=== PATIENT | female | born 1980 | race Caucasian/White ===

== ENCOUNTER 2022-01-07 12:37 | Outpatient (CLI) | payer BC, SELFPAY | END 2022-01-07 12:38 | disposition home or self-care (01) | LOC: AMB 01-15 15:02 | PROVIDERS: PCP Family Medicine; Visit Provider Emergency Medicine Emergency Medical Services | DX: R10.9 Unspecified abdominal pain (principal) | CPT/HCPCS: A0425; A0427 ==

== ENCOUNTER 2022-01-07 13:10 | Emergency (ER) | payer BC, SELFPAY ==
[2022-01-07 13:10] VITALS: BP 106/68; PULSE 71; RESP 14; TEMP 35.9; O2SAT 100; BMI 25.1
[2022-01-07 13:15] VITALS: BP 115/85; PULSE 77; RESP 14; O2SAT 100
[2022-01-07 13:30] VITALS: BP 115/80; PULSE 62; O2SAT 98
--- NOTE | 2022-01-07 13:43 | ED.ABDPAIN ---
HPI - Abdominal Pain General Time Seen by Provider: 13:42 Date Seen: 01/07/22 Chief Complaint: Abdominal Pain Stated Complaint: Abdominal Pain History of Present Illness HPI narrative: This 41-year-old female comes in with right lower quadrant abdominal pain that came on rather suddenly about half an hour prior to arrival. She states that the pain was sudden and severe and feels similar to ovarian cysts that she has had in the past. She states that she has had a ruptured ovarian cyst approximately once a year over the past 20 years or so. Prior to this today she was feeling normal. She does not report any fever. she came in by ambulance where an IV was established and she received a dose of fentanyl. This brought sufficient relief to her pain for the time being. Related Data Home Medications Medication Instructions Recorded Confirmed sertraline 100 mg tablet mg 01/07/22 Allergies Allergy/AdvReac Type Severity Reaction Status Date / Time Estrogens Allergy Verified 01/07/22 13:42 nalbuphine [From Nubain] Allergy Verified 01/07/22 13:42 Review of Systems Status of ROS Reports: 10 or more systems reviewed and unremarkable except as noted in History and below Narrative Constitutional: No fevers, no weight gain or loss. Eyes: No discharge. No vision changes. HENT: No congestion, no sore throat, no ear pain. Cardiovascular: No chest pain, no palpitations. Respiratory: No shortness of breath, no wheezes, no cough. Gastrointestinal: Abdominal pain as described above. Genitourinary: No dysuria, no hematuria. Musculoskeletal: Normal range of motion. Skin: No rashes, no pruritis. Neurological: No dizziness, weakness, sensory change, speech change. Endo/Heme/Allergies: No bruising or bleeding. No polydipsia. Pysch: no suicidality, no anxiety, no insomnia. All other systems reviewed and are negative. Exam Narrative: Exam Narrative: Constitutional: Well-developed, well-nourished, no acute distress. HEENT: Normocephalic, atraumatic. Neck: Normal range of motion. Nontender. Supple. Heart: Regular. No murmurs. Normal rate. Intact distal pulses. Lungs: Clear to auscultation. No chest discomfort. No wheezes, rhonchi, or rales. Abdomen: Normal bowel sounds. Tenderness in the right lower quadrant overlying the area where the right ovary would reside. No rebound tenderness. Genitalia: Deferred. Back: No midline tenderness. Normal range of motion. Extremities: Normal range of motion. No injury. Skin: Intact. No rash. Warm. No erythema or pallor. Neurologic: No altered sensation. No weakness. Alert and oriented. Psychiatric: No suicidality. No anxiety or depression. No insomnia. Nursing notes and vitals signs are reviewed. Const: Vital Signs, click to edit/add: Vital Signs - 24 hr 01/07/22 13:10 Temperature 96.7 F L Pulse Rate [Left P ulse Oximeter] 71 Respiratory Rate 14 Blood Pressure [Le ft Upper Arm] 106/68 Pulse Oximetry 100 Course Vital Signs Vital signs: Initial Vital Signs Temperature 96.7 F L 01/07/22 13:10 Temperature Source Temporal Artery Scan 01/07/22 13:10 Pulse Rate 71 01/07/22 13:10 Respiratory Rate 14 01/07/22 13:10 Blood Pressure 106/68 01/07/22 13:10 Blood Pressure Mean 80 01/07/22 13:10 Blood Pressure Position Sitting 01/07/22 13:10 Pulse Oximetry 100 01/07/22 13:10 Oxygen Delivery Method 01/07/22 13:10 Vital Signs Temperature 96.7 F L 01/07/22 13:10 Pulse Rate 71 01/07/22 13:10 Respiratory Rate 14 01/07/22 13:10 Blood Pressure 106/68 01/07/22 13:10 Pulse Oximetry 100 01/07/22 13:10 Temperature 96.7 F L 01/07/22 13:10 Pulse Rate 71 01/07/22 13:10 Respiratory Rate 14 01/07/22 13:10 Blood Pressure 106/68 01/07/22 13:10 Pulse Oximetry 100 01/07/22 13:10 MDM - Abdominal Pain MDM Narrative Medical decision making narrative: This patient comes in with sudden onset of severe abdominal pain in the right lower quadrant. She has a history of ovarian cyst ruptures. Her symptoms today are very suspicious for a similar recurrence. She still has her appendix and gallbladder. She does not describe any fever and does not have symptoms suspicious of appendicitis or gallbladder disease. I did discuss lab and imaging options with the patient who agreed to have a bedside ultrasound done. I was able to see normal anatomy and did not find any cystic structure or evidence of appendicitis. I did discuss the role of CT scan with IV contrast as a better test for the abdomen as a whole but this was declined by the patient. She is not exhibiting any rebound tenderness or signs of acute abdomen. She is okay to return home. She did receive an extra dose of Dilaudid 0.5 mg intravenously. Prescriptions for Toradol and [place] are provided. Discharge Plan Discharge Clinical Impression: Ovarian cyst rupture Patient Disposition: Home, Self-Care Condition: Stable Instructions: Ovarian Cyst (ED) Additional Instructions: Abdominal pain suspicious for ruptured ovarian cyst. Take medication as needed and indicated. Follow up with MD or return if persistent or worsening symptoms happen. Activity Level: Activity as Tolerated Prescriptions: No Action sertraline 100 mg tablet 0RF Label Comments: TAKE ONE TABLET BY MOUTH ONE TIME DAILY Stand Alone Forms: [place] Info Instructions Procedures Ultrasound Other exam #1: Anatomical areas examined: Liver, right kidney, gallbladder, aorta, and right lower quadrant. Indications: Right-sided abdominal pain. Exam type: focused emergency ultrasound Description/findings: Normal appearing kidney, liver, gallbladder, aorta. no fluid in Morison's pouch. No evidence of cystic structure in the right lower abdomen. Appendicitis is not visualized. Impression: Normal ultrasound findings of the right abdomen.
[2022-01-07 14:00] VITALS: BP 115/75; PULSE 66; RESP 16; O2SAT 99
[2022-01-07] MEDS: HYDROmorphone 0.5 mg/0.5 ml inj IVP (14:23)
== END 2022-01-07 14:30 | disposition home or self-care (01) ==
PROVIDERS: Emergency Provider Emergency Medicine Emergency Medical Services; PCP Family Medicine
DX: N83.299 Other ovarian cyst, unspecified side (principal)
CPT/HCPCS: 96374; 99283; 99284; 99285; J1170

== ENCOUNTER 2022-07-31 09:00 | Outpatient (CLI) | payer BC, SELFPAY ==
--- NOTE | 2022-07-31 09:15 | US_ITS ---
Patient: DEVYN WATERS Facility:?[facility] Patient ID:?[id number] Site Patient ID:?[id number]. Site :?1980 Study:?US-Thyroid THRYOID FNA / RT-07/31/2022 10:26:54 AM Ordering Physician:?UNKNOWN UNKNOWN Final Report: INDICATION: Right thyroid lobe nodule. Fine-needle aspiration/biopsy for diagnostic purposes. PROCEDURE: Informed consent was obtained. Benefits and risks were discussed. The patient agreed to proceed. [place] Protocol: A. Preprocedure verification complete: Yes 1) Relevant information/documentation available, reviewed and properly matched to the patient; 2) Consent accurate and complete; 3) Equipment and supplies available. B. Site marking complete: Yes Site marked if not in continuous attendance with patient. C. TIME OUT completed: Yes Time Out was conducted just prior to starting procedure to verify the eight required elements: 1) Patient identity, 2) Consent accurate and complete, 3) Position, 4) Correct side/site marked (if applicable), 5) Procedure, 6) Relevant images/results properly labeled and displayed (if applicable), 7) Antibiotics/irrigation fluids (if applicable), 8) Safety precautions, 9) Laboratory results were reviewed. Utilizing sterile technique and 1% lidocaine for local anesthetic, a series of six 25-gauge needles were advanced into the 1.7 x 0.7 x 1.6 cm anterior mid right thyroid nodule. The patient tolerated the biopsy well. No immediate complications. No subsequent imaging. The final pathology is pending. IMPRESSION: Technically successful ultrasound-guided fine-needle aspiration/biopsy of a dominant right thyroid lobe nodule. Six passes were made. Final pathology is pending. Dictated by Ruy Persaud MD @ 07/31/2022 11:13:39 AM Signed by:?Ruy Persaud MD @07/31/2022 11:37:41 AM (Electronic Signature)
== END 2022-07-31 09:01 | disposition home or self-care (01) ==
PROVIDERS: PCP Family Medicine; Visit Provider Family Medicine
DX: E04.1 Nontoxic single thyroid nodule (principal)
CPT/HCPCS: 10005; 88173

== ENCOUNTER 2023-03-04 09:02 | Outpatient (CLI) | payer BC, SELFPAY | END 2023-03-04 09:03 | disposition home or self-care (01) | PROVIDERS: PCP Family Medicine; Visit Provider Internal Medicine | DX: Z00.00 Encounter for general adult medical examination without abnormal findings (principal); E04.1 Nontoxic single thyroid nodule; K58.9 Irritable bowel syndrome, unspecified | CPT/HCPCS: 80053; 84443 ==

== ENCOUNTER 2023-04-20 11:45 | Emergency (ER) | payer BC, SELFPAY ==
[2023-04-20 11:50] VITALS: BP 125/87; PULSE 70; RESP 18; TEMP 36.4; O2SAT 99; BMI 27.4
--- NOTE | 2023-04-20 12:16 | CRLHL7_ITS ---
For Patients: As a result of the Century Cures Act, medical imaging exams and procedure reports are released immediately into your electronic medical record. You may view this report before your referring provider. If you have questions, please contact your health care provider. INDICATION: Passed clots. Spotting. COMPARISON: Pelvic ultrasound dated 22 September 2018. FINDINGS: An endovaginal pelvic ultrasound shows a uterus of normal size, contour, and echogenicity. Normal appearance of the endometrial stripe which measures 6 mm in thickness. L IUD in the cervix. A few follicles in the ovaries with the right ovary measuring 3.8 x 2.6 x 2.1 cm and the left ovary measuring 4.7 x 1.8 x 1.8 cm. Color doppler analysis shows normal arterial and venous blood flow to both ovaries. Very small amount of simple appearing free fluid in the pelvis. Impression : 1. IUD displaced inferiorly and is located in the cervix. 2. The uterus and ovaries are otherwise unremarkable. Dictated by Jimmy Rosenberg MD @ 04/20/2023 1:31:58 PM Dictated by: Jimmy Rosenberg MD @ 04/20/2023 13:32:17 (Electronically Signed)
[2023-04-20 13:38] LABS: Basophils Percent Auto 0.5 % (0.0-3.0); Eosinophils Absolute Auto 0.11 K/uL (0.00-0.50); Eosinophils Percent Auto 1.5 % (0.0-7.0); Hematocrit 39.8 % (33.0-51.0); Hemoglobin* 13.1 gm/dL (12.0-16.0); Immature Granulocytes Pct Auto 0.1 %; Lymphocytes Absolute Auto 1.83 K/uL (0.90-2.90); Lymphocytes Percent Auto 24.6 % (20-44); Mean Corpuscular HGB Conc 33 gm/dL (32-36); Mean Corpuscular Hemoglobin 32 pg (26-34); Mean Corpuscular Volume 96 fL (80-100); Monocytes Percent Auto 6.9 % (0.0-11.0); Neutrophils Absolute Auto 4.94 K/uL (1.7-7.0); Neutrophils Percent Auto 66.4 % (42.0-72.0); Platelet Count* 309 K/uL (140-440); Red Blood Count 4.16 m/uL (4.00-5.20); White Blood Count* 7.44 K/uL (4.50-11.00)
[2023-04-20 13:38] LABS: Appearance Urine Clear (Clear); Bilirubin Urine Negative (Negative); Blood Urine 1+ (Negative); Color Urine Yellow (Yellow); Glucose Urine Negative (Negative); Ketones Urine 1+ (Negative); Leukocyte Esterase Urine Negative (Negative); Nitrite Urine Negative (Negative); Protein Urine Negative (Negative); Urobilinogen Urine 0.2 (0.2-1.0); pH Urine 6.5 (5.0-8.5)
[2023-04-20 13:39] LABS: Basophils Absolute Auto 0.04 K/uL (0.00-0.30); Immature Granulocytes Abs Auto 0.01 K/uL (0.00-0.30)
[2023-04-20 13:43] LABS: Slide Review Reflex No
[2023-04-20 13:48] LABS: Ur HCG Qualitative* Negative (Negative)
[2023-04-20 14:08] LABS: Chloride* 105 mmol/L (96-114); Sodium* 139 mmol/L (135-149)
[2023-04-20 14:09] LABS: Potassium* 4.3 mmol/L (3.6-5.1)
[2023-04-20 14:11] LABS: Anion Gap 8 mEq/L (7-15); Carbon Dioxide* 26 mmol/L (20-32); Creatinine* 0.7 mg/dL (0.5-1.5); Est. Creatinine Clearance* 106.69; Estimated Glomerular Filt Rate 111 ml/min
[2023-04-20 14:12] LABS: Blood Urea Nitrogen* 16 mg/dL (5-24); Calcium* 9.2 mg/dL (8.4-10.6); Glucose* 83 mg/dL (60-115)
--- NOTE | 2023-04-20 14:33 | ED.GENADULT ---
HPI - General Adult General Date Seen: 04/20/23 Chief complaint: Abdominal Pain Stated complaint: Ultrasound, came from Urgent Care Time Seen by Provider: 04/20/23 12:00 History of Present Illness HPI narrative: This is a very pleasant 43-year-old female who is a , history of ovarian cysts, history of IBS with constipation, was referred to the ER today from urgent care for evaluation of pelvic cramping and vaginal bleeding. Patient reports that she did have an IUD placed in February. Since then she has had some intermittent vaginal spotting and also some mild intermittent cramping. She has a history of ovarian cyst years ago in her cramping is really not as severe or reminiscent of those cysts. She was into her doctor's office 2 weeks ago on 03/[address] Polanco. She had a pelvic exam with an IUD check and the strings were apparently in place. She was reassured at that time. For the past couple of days she has developed some heavier vaginal bleeding and some pelvic cramping more in the uterus but also little bit on the right side. This morning she was at work and she passed a roughly 7 cm piece of tissue, that appear to be uterine linings. Bleeding is reddish. No purulent or malodorous discharge. No fever chills. No other flank pain or upper abdominal pain. No urinary symptoms. She does not think she is . Related Data Home Medications Medication Instructions Recorded Confirmed sertraline 100 mg tablet mg 01/07/22 04/20/23 Allergies Allergy/AdvReac Type Severity Reaction Status Date / Time nalbuphine [From Nubain] Allergy Unknown Agitated Verified 04/20/23 11:09 Estrogens AdvReac Unknown Factor V Verified 04/20/23 11:09 Leiden Heterozygote [facility] Medical History (Updated 04/20/23 @ 14:33 by Amari Santiago MD) IBS (irritable bowel syndrome) ?K58.9 - Irritable bowel syndrome without diarrhea (ICD-10) History of ovarian cyst ?Z87.42 - Personal history of other diseases of the female genital tract (ICD-10) History of recurrent miscarriages ?N96 - Recurrent loss (ICD-10) History of abnormal cervical Pap smear ?Z87.42 - Personal history of other diseases of the female genital tract (ICD-10) Surgical History (Updated 02/27/23 @ 11:14 by Gabby Moura) Abnormal colonoscopy (09/04/21) ?R93.3 - Abnormal findings on diagnostic imaging of other parts of digestive tract (ICD-10) History of D&C (05/27/09) ?Z98.890 - Other specified postprocedural states (ICD-10) History of right breast biopsy (12/18/10) ?Z98.890 - Other specified postprocedural states (ICD-10) S/P thyroid biopsy ?Z98.890 - Other specified postprocedural states (ICD-10) Family History (Updated 02/27/23 @ 12:01 by Gabby Moura) Father Coronary artery disease, Onset Age: 49 High blood pressure Aunt Lupus Paternal Grandmother High cholesterol High blood pressure Breast cancer, Onset Age: 37 Paternal Grandfather High cholesterol Sister Depression Anxiety Breast cancer Social History Smoking Status: Never smoker Do you use any of these nicotine containing products: None Second hand tobacco smoke exposure: No How often do you have a drink containing alcohol: never How often do you have six or more drinks on one occasion: Never AUDIT-C Alcohol total score: 0 Non-prescribed substance use: denies use Little interest or pleasure in doing things: not at all Feeling down, depressed, or hopeless: not at all Exam Narrative: Exam Narrative: Constitutional: Appears well-developed and well-nourished. Alert. Conversant. Non toxic. She politely declines pain medications. HENT: Head: Atraumatic. Nose: Nose normal. Mouth/Throat: Oral mucosa is clear and moist. no trismus. Pharynx normal. Tonsils symmetric. No tonsillar enlargement, erythema, or exudate. Eyes: Conjunctivae normal. EOM normal. Pupils equal, round, and reactive to light. No scleral icterus. Neck: Normal range of motion. Neck supple. No tracheal deviation present. Cardiovascular: Normal rate, regular rhythm. No gallop. No friction rub. No murmur heard. Symmetric radial artery pulses Pulmonary/Chest: Effort normal. No stridor. No respiratory distress. No wheezes. No rales. No rhonchi . No tenderness. Abdominal: Soft. Bowel sounds normal. No distension. No mass. Suprapubic> right lower quadrant> left lower quadrant tenderness. No rebound. No guarding. No CVA tenderness. Musculoskeletal: RUE: Normal range of motion. No tenderness. No deformity LUE: Normal range of motion. No tenderness. No deformity RLE: Normal range of motion. No edema. No tenderness. No deformity LLE: Normal range of motion. No edema. No tenderness. No deformity Neurological: Alert and oriented to person, place, and time. Normal strength. CN II-VII intact. No sensory deficit. GCS eye subscore is 4. GCS verbal subscore is 5. GCS motor subscore is 6. Normal coordination Skin: Skin is warm and dry. No rash noted. No pallor. Normal capillary refill. Psychiatric: Normal mood. Normal affect. Const: Vital Signs, click to edit/add: Vital Signs - 24 hr 04/20/23 11:50 04/20/23 14:40 Temperature 97.6 F Pulse Rate [Pulse Oximeter] 70 72 Respiratory Rate 18 16 Blood Pressure [Ri ght Upper Arm] 125/87 128/62 Pulse Oximetry 99 100 Oxygen Delivery Me thod Room Air Room Air Course Vital Signs Vital signs: Initial Vital Signs Temperature 97.6 F 04/20/23 11:50 Temperature Source Temporal Artery Scan 04/20/23 11:50 Pulse Rate 70 04/20/23 11:50 Respiratory Rate 18 04/20/23 11:50 Blood Pressure 125/87 04/20/23 11:50 Blood Pressure Mean 99 04/20/23 11:50 Blood Pressure Position Supine 04/20/23 11:50 Pulse Oximetry 99 04/20/23 11:50 Oxygen Delivery Method Room Air 04/20/23 11:50 Vital Signs Temperature 97.6 F 04/20/23 11:50 Pulse Rate 70 04/20/23 11:50 Respiratory Rate 18 04/20/23 11:50 Blood Pressure 125/87 04/20/23 11:50 Pulse Oximetry 99 04/20/23 11:50 Oxygen Delivery Method Room Air 04/20/23 11:50 Temperature 97.6 F 04/20/23 11:50 Pulse Rate 72 04/20/23 14:40 Respiratory Rate 16 04/20/23 14:40 Blood Pressure 128/62 04/20/23 14:40 Pulse Oximetry 100 04/20/23 14:40 Oxygen Delivery Method Room Air 04/20/23 14:40 Medical Decision Making MDM Narrative Medical decision making narrative: This is a very pleasant 43-year-old female with recent placement of IUD now presenting to the ER today with heavier than baseline vaginal bleeding and some pelvic discomfort. She was referred from urgent care for pelvic ultrasound. Differential would include male position of IUD, uterine perforation, ovarian cyst, complication, urinary tract infection, as well as non gynecologic causes of her pain such as appendicitis or kidney stone. Laboratory and urinalysis workup here in the ER reassuring. She does have scant amount of hematuria which is likely related to her light vaginal bleeding. She is not . Pelvic ultrasound confirms malposition of her IUD with that low in the uterus, approaching the cervix. At this point would not remove the IUD here in the ER. She will follow up outpatient with her link knitting machine operator for re-evaluation and IUD removal or repositioning. She is comfortable this plan of care. Precautions for return to the ER reviewed. Lab Data Labs: Lab Results 04/20/23 04/20/23 Range/Units 13:15 13:30 WBC 7.44 (4.50-11.00) K/uL RBC 4.16 (4.00-5.20) m/uL Hgb 13.1 (12.0-16.0) gm/dL Hct 39.8 (33.0-51.0) % MCV 96 (80-100) fL MCH 32 (26-34) pg MCHC 33 (32-36) gm/dL RDW Coeff of [place] 12.0 (11.5-15.5) % Plt Count 309 (140-440) K/uL Neut % (Auto) 66.4 (42.0-72.0) % Lymph % (Auto) 24.6 (20-44) % [place] % (Auto) 6.9 (0.0-11.0) % Eos % (Auto) 1.5 (0.0-7.0) % Baso % (Auto) 0.5 (0.0-3.0) % Neut # (Auto) 4.94 (1.7-7.0) K/uL Lymph # (Auto) 1.83 (0.90-2.90) K/uL [place] # (Auto) 0.50 (0.00-0.90) K/UL Eos # (Auto) 0.11 (0.00-0.50) K/uL Baso # (Auto) 0.04 (0.00-0.30) K/uL Abs Immat Gran (auto) 0.01 (0.00-0.30) K/uL Imm/Tot Granulo (auto) 0.1 % Sodium 139 (135-149) mmol/L Potassium 4.3 (3.6-5.1) mmol/L Chloride 105 (96-114) mmol/L Carbon Dioxide 26 (20-32) mmol/L Anion Gap 8 (7-15) mEq/L BUN 16 (5-24) mg/dL Creatinine 0.7 (0.5-1.5) mg/dL Estimated Creat Clear 106.69 Estimated GFR 111 ml/min Glucose 83 (60-115) mg/dL Calcium 9.2 (8.4-10.6) mg/dL Urine Color Yellow (Yellow) Urine Appearance Clear (Clear) Urine pH 6.5 (5.0-8.5) Ur Specific [place] 1.010 (1.000-1.030) Urine Protein Negative (Negative) Urine Glucose (UA) Negative (Negative) Urine Ketones 1+ A (Negative) Urine Blood 1+ A (Negative) Urine Nitrite Negative (Negative) Urine Bilirubin Negative (Negative) Urine Urobilinogen 0.2 (0.2-1.0) Ur Leukocyte Esterase Negative (Negative) Urine RBC 2-5 A (0-2) Urine WBC 2-5 (0-5) Ur Squamous Epith Cells Few (None-Few) Urine Bacteria Few A (None) Urine HCG, Qual Negative (Negative) Imaging Data Pelvic ultrasound: Attestation: I have reviewed the pertinent imaging results. Radiologist's impression: Impression : 1. IUD displaced inferiorly and is located in the cervix. 2. The uterus and ovaries are otherwise unremarkable. Discharge Plan Discharge Clinical Impression: Pelvic cramping, IUD complication Patient Disposition: Home, Self-Care Condition: Stable Instructions: Intrauterine Device (DC) Additional Instructions: Your ultrasound today shows that your IUD is very low in your uterus and almost into your cervix. You should see your link knitting machine operator within the next 2-4 days to have the IUD removed or repositioned. In the meantime, use ibuprofen if needed for cough for cramping. If you have severe pain, heavy bleeding, lightheadedness, fever, or any other concerns, please come back to the ER right away to be rechecked Prescriptions: No Action sertraline 100 mg tablet Patient Comments: TAKE ONE TABLET BY MOUTH ONE TIME DAILY Follow Up/Referrals: Shante Polanco MD [Primary Care Provider] - Stand Alone Forms: [employer] Info Instructions
[2023-04-20 14:40] VITALS: BP 128/62; PULSE 72; RESP 16; O2SAT 100
[2023-04-20 14:44] LABS: Bacteria Urine Few; Squamous Epithelial Cell Urine Few (None-Few)
== END 2023-04-20 14:42 | disposition home or self-care (01) ==
PROVIDERS: Emergency Provider Emergency Medicine; PCP Family Medicine
DX: T83.89XA Other specified complication of genitourinary prosthetic devices, implants and grafts, initial encounter (principal); R10.2 Pelvic and perineal pain
CPT/HCPCS: 36415; 76830; 80048; 81001; 81025; 85025; 87086; 99283; 99284

== ENCOUNTER 2023-09-02 12:34 | Outpatient (CLI) | payer BC, SELFPAY ==
--- NOTE | 2023-09-02 13:00 | CT_ITS ---
Patient: DEVYN WATERS Facility:?[facility] Patient ID:?[id number] Site Patient ID:?[id number]. Site :?1980 Study:?CT-Abdomen/Pelvis 91CC ISOVUE 370 AND WATER PREP-09/02/2023 1:35:41 PM Ordering Physician:?DR. MIX Final Report: INDICATION: Abdominal pain, colitis TECHNIQUE: Axial images were obtained from the diaphragm to the pubic symphysis. Reformats were obtained in the coronal and sagittal plane. IV Contrast: 91 cc Isovue 370 Oral Contrast: Water COMPARISON: Abdomen and pelvis CT 03/13/2021 FINDINGS: Lower chest: Unremarkable. Liver: Unremarkable. Normal in size and attenuation. No masses. Gallbladder and bile ducts: Unremarkable. No stones or inflammation. No biliary dilatation. Spleen: Unremarkable. Normal in size without mass. Pancreas: Unremarkable. No mass or inflammation. Adrenal glands: Unremarkable. No nodules. Kidneys: Unremarkable. No masses, stones, or hydronephrosis. Vasculature: Unremarkable. GI tract: No dilated loops of large or small intestine. No localized inflammation. Large amount of stool within the colon. Pelvis: Unremarkable. Bones: Degenerative disc disease L5-S1 IMPRESSION: 1. No dilated bowel or localized inflammation. Large amount of stool within the colon. 2. Degenerative disc disease L5-S1 Please note that all CT scans at this facility use dose modulation, iterative reconstruction, and/or weight-based dosing when appropriate to reduce radiation dose to as low as reasonably achievable. Dictated by Nelson Escobar MD @ 09/02/2023 1:54:31 PM Signed by:?Nelson Escobar MD @09/02/2023 1:54:31 PM (Electronic Signature)
== END 2023-09-02 12:35 | disposition home or self-care (01) ==
PROVIDERS: PCP Internal Medicine; Visit Provider Internal Medicine
DX: R10.9 Unspecified abdominal pain (principal); M51.37 Other intervertebral disc degeneration, lumbosacral region
CPT/HCPCS: 74177; Q9967

== ENCOUNTER 2024-07-28 02:44 | Outpatient (CLI) | payer BC, SELFPAY | END 2024-07-28 02:45 | disposition home or self-care (01) | LOC: AMB 08-07 04:11 | PROVIDERS: PCP Internal Medicine; Visit Provider Family Medicine | DX: R10.9 Unspecified abdominal pain (principal) | CPT/HCPCS: A0425; A0433 ==

== ENCOUNTER 2024-07-28 03:17 | Emergency (ER) | payer BC, SELFPAY ==
--- OUTSIDE RECORDS SUMMARY | 2024-07-28 03:20 | XMS_ITS | Continuity of Care Document ---
Author Name NwHIN User [email or web address] llowed Address Unknown Organization Unknown Address Unknown Procedures FILTER APPLIED:Only known Procedures with Onset Date within the last 5 years Procedure Date Procedure Provider Arturo powell Information Status CT ABD PELV W/CONTRAST (46494) Completed URINALYSIS AUTO W/SCOPE (53015) Completed URINE TEST (75153) Completed COMPLETE CBC W/AUTO DIFF WBC (95734) Completed METABOLIC PANEL TOTAL CA (96197) Completed URINE CULTURE/COLONY COUNT (91901) Completed EMERGENCY DEPT VISIT MOD MDM (71201) Completed TRANSVAGINAL US NON-OB (76510) Completed ROUTINE VENIPUNCTURE (26734) Completed Encounters FILTER APPLIED:Only known Encounters with Admission Date within the last 5 years Encounter Location Admission Discharge Billing Code Consultant Cora luther [facility] Shannen Graves
[2024-07-28 03:21] VITALS: BP 113/81; PULSE 74; RESP 18; TEMP 36.8; O2SAT 96; BMI 26.6
[2024-07-28 03:42] LABS: Basophils Absolute Auto 0.03 K/uL (0.00-0.30); Basophils Percent Auto 0.3 % (0.0-3.0); Eosinophils Absolute Auto 0.25 K/uL (0.00-0.50); Eosinophils Percent Auto 2.7 % (0.0-7.0); Hematocrit 38.5 % (33.0-51.0); Hemoglobin* 12.6 gm/dL (12.0-16.0); Immature Granulocytes Abs Auto 0.01 K/uL (0.00-0.30); Immature Granulocytes Pct Auto 0.1 %; Lymphocytes Absolute Auto 3.66 K/uL (0.90-2.90); Mean Corpuscular HGB Conc 33 gm/dL (32-36); Mean Corpuscular Hemoglobin 31 pg (26-34); Mean Corpuscular Volume 94 fL (80-100); Monocytes Percent Auto 6.7 % (0.0-11.0); Neutrophils Absolute Auto 4.59 K/uL (1.7-7.0); Neutrophils Percent Auto 50.2 % (42.0-72.0); Platelet Count* 315 K/uL (140-440); Red Blood Count 4.11 m/uL (4.00-5.20); Slide Review Reflex No; White Blood Count* 9.15 K/uL (4.50-11.00)
--- NOTE | 2024-07-28 03:42 | ED_ITS ---
HPI - General Adult General Chief complaint: Abdominal Pain Stated complaint: Abdominal pain Time Seen by Provider: 07/28/24 03:30 Source: patient and EMS Mode of arrival: EMS Limitations: no limitations History of Present Illness HPI narrative: 44-year-old female with prior history of ovarian cyst presents to the emergency department for evaluation of right lower quadrant pain that awoke her from sleep at 2:30 a.m.. Sharp pain that does not radiate. She reports that she was screaming out in pain. She received fentanyl from EMS and pain is doing quite a bit better. No trauma or injury. No pain when she went to bed normally at 9:00 p.m.. Eating and drinking normally, voiding and stooling normally. No gynecological changes. Finished her menstrual cycle late last week. No nausea or vomiting. No prior history of kidney stones. Does have a prior history of ovarian cyst, denies abdominal surgeries. She says that she feels like the pain is similar to previous ruptured ovarian cyst. Past medical history reportedly negative per patient besides depression. Per her medical records a report of this thigh me a, chronic abdominal pain, alternating diarrhea and constipation as well as a history of an IUD. She states that her only home medication is sertraline. Nonsmoker. ROS is notable for the abdominal symptoms as above only, otherwise denies times 12 systems. Related Data Home Medications ?Medication ?Instructions ?Recorded ?Confirmed sertraline 100 mg tablet 100 mg PO DAILY 07/28/24 07/28/24 Allergies Allergy/AdvReac Type Severity Reaction Status Date / Time nalbuphine (From Nubain) Allergy Unknown Agitated Verified 07/28/24 03:23 Estrogens AdvReac Unknown Factor V Verified 07/28/24 03:23 Leiden Heterozygote [facility] Medical History Abdominal pain ?R10.9 - Unspecified abdominal pain (ICD-10) IBS (irritable bowel syndrome) ?K58.9 - Irritable bowel syndrome without diarrhea (ICD-10) History of ovarian cyst ?Z87.42 - Personal history of other diseases of the female genital tract (ICD-10) History of recurrent miscarriages ?N96 - Recurrent loss (ICD-10) History of abnormal cervical Pap smear ?Z87.42 - Personal history of other diseases of the female genital tract (ICD-10) Surgical History Abnormal colonoscopy (09/04/21) ?R93.3 - Abnormal findings on diagnostic imaging of other parts of digestive tract (ICD-10) History of D&C (05/27/09) ?Z98.890 - Other specified postprocedural states (ICD-10) History of right breast biopsy (12/18/10) ?Z98.890 - Other specified postprocedural states (ICD-10) S/P thyroid biopsy ?Z98.890 - Other specified postprocedural states (ICD-10) Family History Father Coronary artery disease, Onset Age: 49 High blood pressure Aunt Lupus Paternal Grandmother High cholesterol High blood pressure Breast cancer, Onset Age: 37 Paternal Grandfather High cholesterol Sister Depression Anxiety Breast cancer Social History Smoking Status: Never smoker Do you use any of these nicotine containing products: None Second hand tobacco smoke exposure: No How often do you have a drink containing alcohol: never How often do you have six or more drinks on one occasion: Never AUDIT-C Alcohol total score: 0 Non-prescribed substance use: denies use Exam Const: Vital Signs, click to edit/add: Vital Signs - 24 hr 07/28/24 03:21 07/28/24 03:44 07/28/24 04:21 Temperature 98.2 F 98.2 F Pulse Rate [Right Pulse Oximeter] 74 Respiratory Rate 18 Blood Pressure [Ri ght Upper Arm] 113/81 Pulse Oximetry 96 96 Oxygen Delivery Me thod Room Air Documenting provider has reviewed patient's vital signs: yes Common normals: no apparent distress and alert General appearance: cooperative and well kempt HENMT: Common normals: normocephalic, moist oral mucous membranes and oropharynx normal Head and scalp: normocephalic Face and sinus: normal facial exam Mouth: oral and palatal mucosa normal Eye: Common normals: conjunctivae normal General eye: normal appearance of both eyes Conjunctiva: conjunctiva(e) normal Neck & C-Spine: Common normals: full ROM and no lymphadenopathy Resp: Common normals: normal respiratory effort, no use of accessory muscles and clear to auscultation bilaterally Effort & inspection: able to speak in complete sentences Auscultation: clear to auscultation bilaterally Cardio: Common normals: regular rate, regular rhythm, S1 normal heart sound, S2 normal heart sound and no murmurs Rate: regular rate Rhythm: regular rhythm Heart sounds: S1 normal and S2 normal GI: Common normals: Normal to inspection, nondistended, normoactive bowel sounds present, soft to palpation, no hepatosplenomegaly and no masses Palpation: soft and no hepatosplenomegaly Other: Tender to right lower quadrant, no rebound tenderness or guarding. : Common normals: no CVA tenderness Bladder/kidney exam: no CVA tenderness Back & Pelvis: Common normals: no CVA tenderness Extremity: Common normals: normal to inspection, normal capillary refill and no pedal edema Neuro: Sensorium/orientation: alert Speech: speech normal Motor exam: no movement abnormalities noted Psych: Common normals: speech normal Appearance: well kempt Activity/motor behavior: appropriate eye contact Speech: normal speech Mood and affect: euthymic mood Insight: fair Judgement: fair Skin: Common normals: no rashes or lesions noted General skin exam: no rashes or lesions noted Course Course ED Course: 44-year-old female with right lower quadrant abdominal pain. She suspects ovarian cyst,. Cannot rule out nephrolithiasis, bowel obstruction, ovarian torsion, colitis, appendicitis, uterine fibroid, amongst others. Will obtain urinalysis and test. Anticipate CT. This may not appropriately show ovarian torsion. We have limited access to ultrasound overnight. Consider ultrasound if CT is nonrevealing. Toradol ordered p.r.n. Reevaluation(s) Time of Reevaluation #1: 04:33 Reevaluation #1: Patient remains comfortable appearing in the room. She did receive the Toradol that was ordered p.r.n.. She has not had any vomiting, stools or signs of complications here. No fevers. Vitals remained stable. I reviewed her CT findings which are all completely normal besides some mild constipation and her normal lab results with her. I recommended symptomatic treatment with Tylenol, ibuprofen, hot showers and MiraLax every 8 hours for the next couple of days or until her stools past loosely. I have reviewed proper usage of osmotic l axatives to ensure that she is not over diluting the medication. ?all questions answered, written instructions provided. Vital Signs Vital signs: Initial Vital Signs Temperature 98.2 F 07/28/24 03:21 Temperature Source Temporal Artery Scan 07/28/24 03:21 Pulse Rate 74 07/28/24 03:21 Respiratory Rate 18 07/28/24 03:21 Blood Pressure 113/81 07/28/24 03:21 Blood Pressure Mean 91 07/28/24 03:21 Blood Pressure Position Sitting 07/28/24 03:21 Pulse Oximetry 96 07/28/24 03:21 Oxygen Delivery Method Room Air 07/28/24 03:21 Vital Signs Temperature 98.2 F 07/28/24 03:21 Pulse Rate 74 07/28/24 03:21 Respiratory Rate 18 07/28/24 03:21 Blood Pressure 113/81 07/28/24 03:21 Pulse Oximetry 96 07/28/24 03:21 Oxygen Delivery Method Room Air 07/28/24 03:21 Temperature 98.2 F 07/28/24 04:21 Pulse Rate 74 07/28/24 03:21 Respiratory Rate 18 07/28/24 03:21 Blood Pressure 113/81 07/28/24 03:21 Pulse Oximetry 96 07/28/24 03:44 Oxygen Delivery Method Room Air 07/28/24 03:21 Medications Administered Medications: Generic Name Dose Route Start Last Admin Trade Name Freq PRN Reason Stop Dose Admin Ketorolac Tromethamine 15 mg 07/28/24 04:00 07/28/24 04:21 Ketorolac 15 Mg/Ml Inj IVP 15 mg Q6H PRN Administration Medical Decision Making Lab Data Lab results reviewed: Yes I reviewed the patient's lab results Lab results narrative: All labs fully reassuring. No signs of complications. Labs: Lab Results 07/28/24 07/28/24 07/28/24 Range/Units 03:30 03:36 03:40 WBC 9.15 (4.50-11.00) K/uL RBC 4.11 (4.00-5.20) m/uL Hgb 12.6 (12.0-16.0) gm/dL Hct 38.5 (33.0-51.0) % MCV 94 (80-100) fL MCH 31 (26-34) pg MCHC 33 (32-36) gm/dL RDW Coeff of Tyson 12.0 (11.5-15.5) % Plt Count 315 (140-440) K/uL Neut % (Auto) 50.2 (42.0-72.0) % Lymph % (Auto) 40.0 (20-44) % [place] % (Auto) 6.7 (0.0-11.0) % Eos % (Auto) 2.7 (0.0-7.0) % Baso % (Auto) 0.3 (0.0-3.0) % Neut # (Auto) 4.59 (1.7-7.0) K/uL Lymph # (Auto) 3.66 H (0.90-2.90) K/uL [place] # (Auto) 0.60 (0.00-0.90) K/UL Eos # (Auto) 0.25 (0.00-0.50) K/uL Baso # (Auto) 0.03 (0.00-0.30) K/uL Abs Immat Gran (auto) 0.01 (0.00-0.30) K/uL Imm/Tot Granulo (auto) 0.1 % Sodium 139 (135-149) mmol/L Potassium 3.2 L (3.6-5.1) mmol/L Chloride 108 (96-114) mmol/L Carbon Dioxide 24 (20-32) mmol/L Anion Gap 7 (7-15) mEq/L BUN 14 (5-24) mg/dL Creatinine 0.8 (0.5-1.5) mg/dL Estimated Creat Clear 95.74 Estimated GFR 94 ml/min Glucose 99 (60-115) mg/dL Calcium 8.5 (8.4-10.6) mg/dL Total Bilirubin 0.2 (0.1-1.5) mg/dL AST 20 (12-35) U/L ALT 13 (4-35) U/L Alkaline Phosphatase 54 (40-150) U/L C-Reactive Protein < 0.5 L (0.5-1.0) mg/dL Total Protein 6.2 (6.0-8.3) g/dL Albumin 3.8 (3.3-5.0) g/dL Lipase 196 (23-300) U/L Urine Color Yellow (Yellow) Urine Appearance Clear (Clear) Urine pH 6.0 (5.0-8.5) Ur Specific [place] 1.020 (1.000-1.030) Urine Protein Negative (Negative) Urine Glucose (UA) Negative (Negative) Urine Ketones Negative (Negative) Urine Blood Negative (Negative) Urine Nitrite Negative (Negative) Urine Bilirubin Negative (Negative) Urine Urobilinogen 0.2 (0.2-1.0) Ur Leukocyte Esterase Negative (Negative) Urine HCG, Qual Negative (Negative) Imaging Data CT scan - abdomen: Attestation: I have reviewed the pertinent imaging results. My impression: Normal CT Radiologist's impression: FINDINGS: LUNG BASES: The lung bases as visualized appear normal.The heart size is normal at the lung bases. LIVER/BILIARY SYSTEM:The liver is normal in size and configuration. There is no focal mass and there is no intra- or extra hepatic biliary ductal dilatation.Contracted but otherwise unremarkable appearing gallbladder. ADRENALS: Normal KIDNEYS, URETERS and BLADDER:The kidneys appear normal. No visible mass, calc ulus or hydronephrosis. The ureters and bladder as visualized appear normal. No evidence of current or recent obstructive uropathy on either side. SPLEEN:Normal appearance. PANCREAS: Appears normal. RETROPERITONEUM and MESENTERY: There is no mass, adenopathy or aortic aneurysm. GASTROINTESTINAL SYSTEM: There is no evidence of diverticulitis, colitis, mechanical obstruction, or appendicitis. The small bowel as visualized appears normal.Colonic fecal retention. The appendix is well seen and appears normal. PELVIS: No mass, adenopathy or free fluid. OSSEOUS STRUCTURES and ABDOMINAL WALL: There is an age-appropriate appearance of the osseous structures.No significant abdominal wall defect. OTHER: No free fluid or free air. IMPRESSION: Mild diffuse colonic fecal retention without mechanical obstruction. No specific visible cause for right lower quadrant abdominal pain. Discharge Plan Discharge Clinical Impression: Abdominal cramping, Constipation Patient Disposition: Home w/ Parent or Adult Condition: Stable Instructions: Constipation (DC) Additional Instructions: As we discussed, all of your labs look great. No elevated white count, inflammatory markers, pancreatic enzymes, liver enzymes, kidney issues. Your urine does not show any signs of , blood, infection. Your CT scan does not show any appendicitis, bowel obstruction, pancreatitis, stones, ovarian cysts, any other major issues. There is some mild gas and constipation which certainly could explain your symptoms. Your given a dose of Toradol here in the emergency department after your given fentanyl by the emergency room crew. When you get home if the pain is still bothersome, I would recommend a hot bath and 1000 mg of Tylenol. Continue taking Tylenol 1000 mg every 6 hours and or ibuprofen 600 mg every 6 hours for your pain. I would recommend MiraLax every 8 hours until your bowels move loosely and then go back to your once daily dosing. Remember that MiraLax cannot work unless you are diluting it in the proper amount of liquid which is 4-8 oz. I see a lot of people jump 1 dose in a 40 oz water bottle not understanding that the chemical properties of the substance require a certain concentration to work properly. When you ingested at the proper concentration, it draws more water to it inside your got, allowing it to work as a laxative. When you over dilute it before drinking it, it does not work as designed. We typically recommend that you come to an emergency department if you have persistent bloody stools, persistent vomiting, persistent fevers, abdominal trauma or other signs of complication. You may return to work or school as scheduled. Activity Level: No Restrictions Discharge Diet: Regular Prescriptions: No Action sertraline 100 mg tablet 100 mg PO DAILY Follow Up/Referrals: Sunny Graves MD [Primary Care Provider] - Stand Alone Forms: [employer] Info Instructions
[2024-07-28 03:44] VITALS: O2SAT 96
[2024-07-28 03:46] LABS: Appearance Urine Clear (Clear); Bilirubin Urine Negative (Negative); Blood Urine Negative (Negative); Color Urine Yellow (Yellow); Glucose Urine Negative (Negative); Ketones Urine Negative (Negative); Leukocyte Esterase Urine Negative (Negative); Nitrite Urine Negative (Negative); Protein Urine Negative (Negative); Urobilinogen Urine 0.2 (0.2-1.0)
[2024-07-28 03:48] LABS: Ur HCG Qualitative* Negative (Negative)
--- NOTE | 2024-07-28 03:55 | CRLHL7_ITS ---
For Patients: As a result of the Century Cures Act, medical imaging exams and procedure reports are released immediately into your electronic medical record. You may view this report before your referring provider. If you have questions, please contact your health care provider. INDICATION: Right lower quadrant abdominal pain COMPARISON: None TECHNIQUE: CT examination of the abdomen and pelvis was performed following the uneventful intravenous administration of 89 cc of Isovue 370. Thin section axial images were obtained from the lung bases through the pubic symphysis. Oral contrast was not administered. Please note that all CT scans at this facility use dose modulation, iterative reconstruction, and/or weight-based dosing when appropriate to reduce radiation dose to as low as reasonably achievable. FINDINGS: LUNG BASES: The lung bases as visualized appear normal.The heart size is normal at the lung bases. LIVER/BILIARY SYSTEM:The liver is normal in size and configuration. There is no focal mass and there is no intra- or extra hepatic biliary ductal dilatation.Contracted but otherwise unremarkable appearing gallbladder. ADRENALS: Normal KIDNEYS, URETERS and BLADDER:The kidneys appear normal. No visible mass, calculus or hydronephrosis. The ureters and bladder as visualized appear normal. No evidence of current or recent obstructive uropathy on either side. SPLEEN:Normal appearance. PANCREAS: Appears normal. RETROPERITONEUM and MESENTERY: There is no mass, adenopathy or aortic aneurysm. GASTROINTESTINAL SYSTEM: There is no evidence of diverticulitis, colitis, mechanical obstruction, or appendicitis. The small bowel as visualized appears normal.Colonic fecal retention. The appendix is well seen and appears normal. PELVIS: No mass, adenopathy or free fluid. OSSEOUS STRUCTURES and ABDOMINAL WALL: There is an age-appropriate appearance of the osseous structures.No significant abdominal wall defect. OTHER: No free fluid or free air. IMPRESSION: Mild diffuse colonic fecal retention without mechanical obstruction. No specific visible cause for right lower quadrant abdominal pain. Please note that all CT scans at this facility use dose modulation, iterative reconstruction, and/or weight-based dosing when appropriate to reduce radiation dose to as low as reasonably achievable. Dictated by Gil Hannah MD @ 07/28/2024 4:24:18 AM (Electronically Signed)
--- OUTSIDE RECORDS SUMMARY | 2024-07-28 03:56 | XMS_ITS | Continuity of Care Document ---
Author Name Nw[facility]IN User [email or web address] llowed Address Unknown Organization Unknown Address Unknown Procedures FILTER APPLIED:Only known Procedures with Onset Date within the last 5 years Procedure Date Procedure Provider Arturo powell Information Status CT ABD PELV W/CONTRAST (61304) Completed URINALYSIS AUTO W/SCOPE (23691) Completed URINE TEST (05620) Completed COMPLETE CBC W/AUTO DIFF WBC (45177) Completed METABOLIC PANEL TOTAL CA (76839) Completed URINE CULTURE/COLONY COUNT (81544) Completed EMERGENCY DEPT VISIT MOD MDM (14986) Completed TRANSVAGINAL US NON-OB (03866) Completed ROUTINE VENIPUNCTURE (95577) Completed Encounters FILTER APPLIED:Only known Encounters with Admission Date within the last 5 years Encounter Location Admission Discharge Billing Code Consultant [facility]a [facility] Shannen Graves
--- OUTSIDE RECORDS SUMMARY | 2024-07-28 03:56 | XMS_ITS | Clinical Summary ---
Author Organization [employer] [facility] Address [place], [place] [address] Care Team Providers Care Doctor Of Naturopathic Medicine Name Role Phone Shante Polanco MD Primary Care Prov ider Allergies Active Allergy Reactions Criticality Noted Date Comments Estrogens 06/09/2009 Factor V Leiden heterozygote Nalbuphine Restlessness Medications multivitamin (MVI) tablet Take 1 tablet by mouth once daily. 0 05/09/2020 Active cholecalciferol (VITAMIN D-3) 2,000 unit capsule Take 1 capsule by mouth once daily. 0 05/09/2020 Active bacillus coagulans-inuli n (PROBICHEW) 21 billion cell - 1 gram chew Take 1 Tab by mouth once daily. 0 05/09/2020 Active sertraline (ZOLOFT) 100 mg tabletIndicatio ns:Dysthymia Take 1 Tablet (100 mg) by mouth once daily. 90 Tablet 1 03/05/2024 Active Active Problems Problem Noted Date Diagnosed Date Elbow contusion 09/22/2021 Delivery normal 10/25/2012 Anxiety state, unspecified 04/20/2010 Heterozygous factor V Leiden mutation 05/31/2009 MTHFR mutation 05/31/2009 History of recurrent miscarriages 05/18/2009 Tobacco use disorder 08/27/2007 Overview (05/24/2020): Quit in 07/2018 Palpitations 02/03/2007 Lump or mass in breast 02/03/2007 Esophageal reflux 02/03/2007 STEFANIE I (cervical intraepithelial neoplasia I) Resolved Problems Problem Noted Date Diagnosed Date Resolved Date Low-lying placenta 06/03/2012 4 Assessment & Plan (09/04/2012 10:42 AM MARBLEIZER): Resolved US on 09/02/12 FINDINGS: Sonographic evaluation of the gravid uterus was performed. There is a living intrauterine sheriff in vertex presentation. The cervix is not well visualized. However the anterior placenta demonstrates no evidence of previa or low-lying position with the placental tip to cervix measuring 8.2 to 8.4 cm. The amniotic fluid index is 14.6 cm at the 50th percentile. The heart rate is 135 beats per minute. IMPRESSION: 1. Cephalic presentation fetus. 2. Anterior placenta with no evidence of low lying position or previa. Breech, incomplete 06/02/2012 4 Supervision of other normal 02/12/2012 09/11/2013 Assessment & Plan (09/25/2012 8:39 AM CDT): Group B strep NEGATIVE Assessment & Plan (04/03/2012 10:18 AM CDT): Had issue with epidural and blood pressure drop with last . No issues in first Immunizations Name Administration Dates Next Due Hepatitis B (Adult) 11/13/1994,10/16/1994 Influenza Virus, Unspecified 06/11/2006 Rabavert 10/06/2021,09/29/2021,09/25/2021 ,09/22/2021 09/25/2021 Tdap 03/05/2024,09/18/2012,11/24/2010 Family History Medical History Relation Name Comments Good Health Daughter Heart Disease Father CAD age 49 sti nt Hypertension Father Good Health Mother Other Paternal Aunt Lupus Hyperlipidemia Paternal Grandfather Cancer-breast Paternal Grandmother Hyperlipidemia Paternal Grandmother Hypertension Paternal Grandmother Anxiety disorder Sister 1 depression Cancer-breast Sister 1 Anxiety disorder Sister 2 depression Good Health Sister 3 Good Health Son Relation Name Status Comments Daughter Father Mother Paternal Aunt Paternal Grandfather Paternal Grandmother Sister 1 Sister 2 Sister 3 Son Social History Tobacco Use Types Packs/Day Years Used Date Smoking Tobacco: Former Cigarettes Q uit: 1998 Smokeless Tobacco: Never Tobacco Cessation:Counseling Given: Yes Comments:April 2018 Alcohol Use Standard Drinks/Week Comments No 0 (1 standard drink = 0.6 oz pur e alcohol) PHQ-2 Answer Date Recorded PHQ-2 TOTAL SCORE 1 03/05/2024 Social Connections Answer Date Recorded Do you often feel lonely or isolated from those around you? 0 01/28/2024 Financial Resource Strain Answer Date R ecorded Difficulty of Paying Living Expenses 3 01/28/2024 Difficulty of Paying Living Expenses Not on file 01/28/2024 Food Insecurity Answer Date Recorded Do you worry your food will run out before you are able to buy more? 1 01/28/2024 Transportation Needs Answer Date Record ed Does lack of transportation keep you from medica l appointments? 1 01/28/2024 Does lack of transportation keep you from work, meetings or getting things that you need? 1 01/28/2024 Housing Stability Answer Date Recorded What is your housing situation today? 1 01/28/2024 Utilities Answer Date Recorded Do you have trouble paying f or utilities (for example, heat, electricity, water, phone)? 1 01/28/2024 Comments No Sex and Gender Information Value Date Recorded Sex Assigned at Not on file Legal Sex Female 6:58 AM MARBLEIZER Gender Identity Not on file Sexual Orientation Not on file Occupation Industry Job Start Date Job End Date Not on file Not on file Not on file Not on file Obstetrics History Para Term AB IAB SAB Ectopic Multiple Livin g Live Births 7 2 2 3 3 3 Date Outcome GA Total Labor Labor/2nd/3rd Weight Sex Type Anes PTL Mali A1 A5 Name Clin Comments:System Genera bari. Please review and update details. SAB SAB SAB 006 Term 40w 0d 11h 00m/ 2.58 kg (5 lb 11 oz) M Vag 008 Term 38w 0d 11h 00m/ 3.26 kg (7 lb 3 oz) F Vag 013 Pancho Last Filed Vital Signs Vital Sign Reading Time Taken Comments Blood Pressure 128/88 03/05/2024 12:32 PM CDT Pulse 64 03/05/2024 12:32 PM CDT Temperature 36.5 C (97.7 F) 08/28/2021 3:19 PM MARBLEIZER Respiratory Rate 14 09/05/2020 2:25 PM MARBLEIZER Oxygen Saturation 100% 03/05/2024 12:32 PM CDT Inhaled Oxygen Concentration - - Weight 89.8 kg (198 lb) 03/05/2024 12:32 PM CDT Height 171.5 cm (5' 7.5) 03/05/2024 12:32 PM CD T Body Mass Index 30.55 03/05/2024 12:32 PM CDT Plan of Treatment Health Maintenance Due Date Last Done Comments COVID-19 vaccine series ( season) 2024 Influenza for age 9-49 03/08/2024 06/11/2006 BMI (ht and wt on same day) for age 18+ 03/05/2025 03/05/2024, 07/16/2022, 08/28/2021, Additional history exists Depression screening for age 12+ 03/05/2025 03/05/2024, 08/14/2023, 07/16/2022, Additional history exists Pap test for age 21-65 09/05/2025 , 09/05/2020, 05/27/2017, Additional history exists Colonoscopy through age 75 04/18/202604/18, 04/18/2021, 04/18/2021 Tetanus booster 03/05/2034 03/05/2024, 09/05, 11/24/2010, Additional history exists Hepatitis C screening for age 18-79 Completed 05/06/2008 HIV for age 15-65 Completed 02/12/2012, , 05/06/2008, Additional history exists Tdap Completed 03/05/2024, 09/05, 11/24/2010 Pneumococcal series for age 6-49 Aged Out No longer eligible based on patient's age to complete this topic Procedures Procedure Name Priority Date/Time Associated Diagnosis Comments COLONOSCOPY DIAGNOSTIC Routine 04/18/2021 9:53 AM CDT Chronic RLQ pain CHILD DEVELOPMENT PROFESSOR THIN PREP PAP SCREEN IMAGED Routine 09/05/2020 3:00 PM MARBLEIZER Pap smear for cervical cancer screening ANTI HIV 1/2 Routine 02/12/2012 10:55 AM CDT Supervision of other normal ANTI HCV Routine 05/06/2008 4:10 PM CDT Special Screening Examination for Other Specified Viral Diseases from Last 3 Months or Most Recently Relevant to Health Maintenance Results * COLONOSCOPY (04/18/2021 10:07 AM CDT) 04/18/2021 10:0 7 AM CDT Narrative Transcriptions Ricco Roque MD - 04/18/2021 11:44 AM CDT Patient Name: Isabella Mackey Procedure Date: 04/18/2021 Gender: Female Date of : 1980 Admit Type: Outpatient Procedure: Colonoscopy Proceduralist: Ricco Roque MD , Gretta Stein (Nurse) Referring MD: Ricco Roque Indications/Pre-Op Diagnosis: This is the patient's first colonoscopy, Abdominal pain in the right lower quadrant Medications: Fentanyl 250 micrograms IV, Midazolam 4 mgIV, The level of sedation administered wasmoderate Procedure Description: The patient had risks, benefits and alternatives explained to andgave informed consent. The patient had a stable cardiopulmonary status and judged an adequate candidate for conscious sedation. The colonoscope was passed through the anus with the intention of advancing to the cecum. The scope was advanced to the transversecolon before the procedure was aborted. Medications were given. The colonoscopy was performed without difficulty. The patient toleratedthe procedure well. The quality of the bowel preparation was good. No anatomical landmarks were photographed. Complications: No immediate complications. Estimated Blood Loss & Specimen: Estimated blood loss: none. Specimen collected - None Findings: The perianal and digital rectal examinations were normal. The colon (entire examined portion) was significantly redundant. The exam was otherwise without abnormality. Impressions/Post-Op Diagnosis: - Redundant colon. - The examination was otherwise normal. - No specimens collected. - The procedure was aborted due to a tortuous colon and the patient's excessive discomfort during the procedure. Recommendation: - Patient has a contact number available for emergencies. The signsand symptoms of potential delayed complications were discussed with the patient. Return to normal activities tomorrow. Written discharge instructions were provided to the patient. - Resume previous diet. - Continue present medications. - Perform a virtual colonoscopy. - No repeat colonoscopy due to long redundant colon and excessivepain during colonoscopy. Moderate Sedation: Moderate (conscious) sedation was administered by the endoscopy nurse and supervised by the endoscopist. The following parameters were monitored: oxygen saturation, heart rate, respiratory rate, blood pressure, adequacy of pulmonary ventilation and reponse to care. Please refer to the patient's medical record flowsheets and nursing notes for moderate sedation details. Total physician intraservice time was 28 minutes. Ricco Roque MD 04/18/2021 11:31:15 AM This report has been signed electronically. Note Initiated On: 04/18/2021 10:07 AM Procedure Code(s): --- Professional --- 99013, 53, Colonoscopy, flexible;diagnostic, including collection of specimen(s) bybrushing or washing, when performed (separateprocedure) Diagnosis Code(s): --- Professional --- R10.31, Right lower quadrant pain Q43.8, Other specified congenitalmalformations of intestine CPT copyright 2020 [employer]. All rights reserved. The codes documented in this report are preliminary and upon edge inker heels reviewmay be revised to meet current compliance requirements. Scope In: 11:00:09 AM Scope Out: 11:25:08 AM us Ricco Roque MD PROCEDURE ORD Edited Re sult - Final * CHILD DEVELOPMENT PROFESSOR THIN PREP PAP SCREEN IMAGED (09/05/2020 3:00 PM MARBLEIZER) Case Report Gynecologic Cytology Report Case: [id number] Authorizing Provider: Shante Polanco Collected: 09/05/2020 Pablo Andrews MD Ordering Location: [facility] Received: 09/05/2020 1558 Clinic First Screen: Denis Cary Specimen: CHILD DEVELOPMENT PROFESSOR ThinPrep Vial Screening, Cervical 09/13/2020 1:46 PM MARBLEIZER [facility] [employer] ENTRAL LABORATORY INTERPRETATION/ RESULT NEGATIVE FOR INTRAEPITHELIAL LESION OR MALIGNANCY (NIL) (none) 09/13/2020 1:46 PM MARBLEIZER [facility] [employer] [facility] IMEN ADEQUACY Satisfactory for evaluation Endocervical component present 09/13/2020 1:46 PM MARBLEIZER [facility] [employer] [facility] HPV REQUEST HPV and PAP 09/13/2020 1:46 PM MARBLEIZER [facility] [employer] ENTRAL LABORAT[facility] Date of LMP 08/30/2020 09/13/2020 1:46 PM MARBLEIZER [facility] [employer] [facility] Last Pap Date 05/27/17 09/13/2020 1:46 PM MARBLEIZER [facility] ENTRAL LABORATORY Last Pap Result NIL 1:46 PM MARBLEIZER [facility] ENTRAL LABORATORY Abnormal Pap or [place]kerel Bx in last 5 years No 09/13/2020 1:46 PM MARBLEIZER [facility] ENTRAL LABORATORY Menstrual Status Regular Periods 09/13/2020 1:46 PM MARBLEIZER [facility] [employer] [facility] Pickerel Bx Done Today No 09/13/2020 1:46 PM MARBLEIZER [facility] ENTRAL LABORATORY Additional Information None given 09/13/2020 1:46 PM MARBLEIZER [facility] ENTRAL LABORATORY Comment: Cytology is screened at [facility], Central Laboratory - [address], [place] [address] and [facility] Laboratory - [address], [place] [address] [address] [facility] Laboratory - [address] [place] [address] Interpreted at [facility] [employer] [facility], Central Laboratory - [address], [place] [address] Automated Review Successful 09/13/2020 1:46 PM MARBLEIZER [facility] ENTRAL LABORATORY Comment:Specimen processed s uccessfully by automated search strategist device, ThinPrep Imaging System, [employer] ANCILLARY TESTING CHILD DEVELOPMENT PROFESSOR HPV Ordered, Please see separate report 09/13/2020 1:46 PM MARBLEIZER [facility] ENTRNE LABORATORY Note The pap test is a screening technique, not a diagnostic procedure. It is used primarily to screen for squamous cancers and precursor lesions. Published studies have shown that it is subject to both false negative and false positive results. The pap test should not be used as the sole means to diagnose or exclude pre-malignant and malignant lesions. 09/13/2020 1:46 PM [facility] Other (Cervical) Non-Blood / Unknown 09/05/2020 3:00 PM MARBLEIZER 09/05/2020 3:58 PM MARBLEIZER Shante Polanco MD PATHOLOGY/CYTOLOGY Final [facility] [address] [place] [address], [place] * ANTI HIV 1/2 (02/12/2012 10:55 AM CDT) [facility]TI [facility] specimen (specimen) BLOOD SPECIMEN / Unknown 02/12/2012 10:55 AM CDT 02/12/2012 10:42 AM CDT Deonna Le NP SEND OUTS F inal Result [facility] [place]NAL ZIP [id number] [place] [address] * ANTI HCV (05/06/2008 4:10 PM CDT) ANTI HCV Non-reacti [facility] Blood specimen (specimen) BLOOD SPECIMEN / Unknown 05/06/2008 4:10 PM CDT 05/06/2008 4:04 PM CDT Bess LAWRENCE SEND OUTS Final Resu lt [facility] INTERNAL ZIP [address] [address] from Last 3 Months or Most Recently Relevant to Health Maintenance Insurance [facility] Care Teams Doctor Of Naturopathic Medicine Relationship Specialty Start Date End Date Shante Polanco MD [address] [place] [address] PCP - General Family Practice 03/21/12
[2024-07-28 03:57] LABS: Albumin* 3.8 g/dL (3.3-5.0); Chloride* 108 mmol/L (96-114); Potassium* 3.2 mmol/L (3.6-5.1); Sodium* 139 mmol/L (135-149)
[2024-07-28 03:59] LABS: Creatinine* 0.8 mg/dL (0.5-1.5); Est. Creatinine Clearance* 95.74; Estimated Glomerular Filt Rate 94 ml/min
[2024-07-28 04:00] LABS: Alanine Aminotransferase* 13 U/L (4-35); Alkaline Phosphatase* 54 U/L (40-150); Anion Gap 7 mEq/L (7-15); Aspartate Amino Transferase* 20 U/L (12-35); Bilirubin Total* 0.2 mg/dL (0.1-1.5); Blood Urea Nitrogen* 14 mg/dL (5-24); Carbon Dioxide* 24 mmol/L (20-32); Glucose* 99 mg/dL (60-115); Lipase* 196 U/L (23-300); Total Protein* 6.2 g/dL (6.0-8.3)
[2024-07-28 04:01] LABS: Calcium* 8.5 mg/dL (8.4-10.6)
[2024-07-28 04:03] LABS: C Reactive Protein* < 0.5 mg/dL (0.5-1.0)
[2024-07-28 04:21] VITALS: TEMP 36.8
[2024-07-28] MEDS: KETOROLAC 15 MG/ML inj IVP (04:21)
== END 2024-07-28 04:57 | disposition home or self-care (01) ==
PROVIDERS: Emergency Provider Family Medicine; PCP Internal Medicine
DX: R10.31 Right lower quadrant pain (principal); K59.00 Constipation, unspecified
CPT/HCPCS: 36415; 74177; 80053; 81003; 81025; 83690; 85025; 86140; 94761; 96374; 99284; J1885; Q9967

== ENCOUNTER 2025-04-01 21:02 | Outpatient (CLI) | payer BC, SELFPAY | END 2025-04-01 21:03 | disposition home or self-care (01) | LOC: AMB 04-02 13:39 | PROVIDERS: PCP Internal Medicine; Visit Provider Family Medicine | DX: R55 Syncope and collapse (principal); R53.1 Weakness | CPT/HCPCS: A0425; A0427 ==

== ENCOUNTER 2025-04-01 21:32 | Emergency (ER) | payer BC, SELFPAY ==
[2025-04-01] VITALS (16 sets, daily range): BP systolic 117–141; BP diastolic 67–99; PULSE 77–98; RESP 0–19; TEMP 36.1; O2SAT 95–100; BMI 28.1
--- OUTSIDE RECORDS SUMMARY | 2025-04-01 21:34 | XMS_ITS | Clinical Summary ---
Author Organization [employer] [facility] Address [address] [place] [address] Care Team Providers Care Hand Silvering Supervisor Name Role Phone Shante Polanco MD Primary [...] mg) by mouth once daily. 90 Tablet 09/09/2024 Active Active Problems Problem Noted Date Diagnosed [...] 4 Assessment & Plan (09/04/2012 10:42 AM INSPECTOR PROCESS): Resolved US on 09/02/12 FINDINGS: Sonographic evaluation [...] last . No issues in first Immunizations Immunization Administration Dates Next Due Hepatitis B (Adult) [...] on file Legal Sex Female 6:58 AM INSPECTOR PROCESS Gender Identity Not on file Sexual Orientation [...] 36.5 C (97.7 F) 08/28/2021 3:19 PM INSPECTOR PROCESS Respiratory Rate 14 09/05/2020 2:25 PM INSPECTOR PROCESS Oxygen Saturation 100% 03/05/2024 12:32 PM CDT Inhaled Oxygen Concentration - - Weight 89.8 kg (198 lb) 03/05/2024 12:32 PM CDT Height 171.5 cm (5' 7.5) 03/05/2024 12:32 PM CD T Body Mass Index 30.55 03/05/2024 12:32 PM CDT Plan of Treatment Health Maintenance Due Date Last Done Comments Hepatitis B series for 19+ (3 of 3 - 3-dose series) 02/05/1995 11/13/1994, 10/16/1994 HPV series for age 9-45 (1 - 3-dose SCDM series) 2009 BMI (ht and wt on same day) for age 18+ 03/05/2025 03/05/2024, 07/16/2022, 08/28/2021, Additional history exists Depression screening for age 12+ 03/05/2025 03/05/2024, 08/14/2023, 07/16/2022, Additional history exists COVID-19 vaccine series ( season) 2025 Influenza Vaccine (#1) 2025 06/11/2006 Pap test for age 21-65 09/05/2025 , 09/05/2020, 05/27/2017, Additional history exists Colonoscopy through age 75 04/18/202604/18, 04/18/2021, 04/18/2021 Tetanus booster 03/05/2034 03/05/2024, 09/05, 11/24/2010, Additional history exists RSV vaccine for adults or (1 - 1-dose 75+ series) 2057 Hepatitis C screening for age 18-79 Completed 05/06/2008 HIV for age 15-65 Completed 02/12/2012, , 05/06/2008, Additional history exists Pneumococcal series for age 6-49 Aged Out No longer eligible based on patient's age to complete this topic Procedures Procedure Name Priority Date/Time Associated Diagnosis Comments COLONOSCOPY DIAGNOSTIC Routine 04/18/2021 9:53 AM CDT Chronic RLQ pain AERIAL ADVERTISER THIN PREP PAP SCREEN IMAGED Routine 09/05/2020 3:00 PM INSPECTOR PROCESS Pap smear for cervical cancer screening ANTI HIV 1/2 Routine 02/12/2012 10:55 AM CDT Supervision of other normal (HC) ANTI HCV Routine 05/06/2008 4:10 PM CDT [...] 10:07 AM Procedure Code(s): --- Professional --- 98906, 53, Colonoscopy, flexible;diagnostic, including collection of specimen(s) bybrushing or washing, when performed (separateprocedure) Diagnosis Code(s): --- Professional --- R10.31, Right lower quadrant pain Q43.8, Other specified congenitalmalformations of intestine CPT copyright 2020 [employer]. All rights reserved. The codes documented in this report are preliminary and upon laborer aquatic life reviewmay be revised to meet current compliance requirements. Scope In: 11:00:09 AM Scope Out: 11:25:08 AM us Ricco Roque MD PROCEDURE ORD Edited Re sult - Final * AERIAL ADVERTISER THIN PREP PAP SCREEN IMAGED (09/05/2020 3:00 PM INSPECTOR PROCESS) Case Report Gynecologic Cytology Report Case: [id number] Authorizing Provider: Shante Polanco Collected: 09/05/2020 Pablo Andrews MD Ordering Location: [facility] Received: 09/05/2020 1558 Clinic First Screen: Denis Cary Specimen: AERIAL ADVERTISER ThinPrep Vial Screening, Cervical 09/13/2020 1:46 PM INSPECTOR PROCESS [facility] [facility] ENTRAL LABORATORY INTERPRETATION/ RESULT NEGATIVE FOR INTRAEPITHELIAL LESION OR MALIGNANCY (NIL) (none) 09/13/2020 1:46 PM INSPECTOR PROCESS [facility] ENTRAL LABORATORY at 1346 INSPECTOR PROCESS SPECIMEN ADEQUACY Satisfactory for evaluation Endocervical component present 09/13/2020 1:46 PM INSPECTOR PROCESS [facility] ENTRAL LABORATORY HPV REQUEST HPV and PAP 09/13/2020 1:46 PM INSPECTOR PROCESS [facility] ENTRAL LABORATORY Date of LMP 08/30/2020 09/13/2020 1:46 PM INSPECTOR PROCESS [facility] ENTRAL LABORATORY Last Pap Date 05/27/17 09/13/2020 1:46 PM INSPECTOR PROCESS [facility] ENTRAL LABORATORY Last Pap Result NIL 1:46 PM INSPECTOR PROCESS [facility] ENTRAL LABORATORY Abnormal Pap or [place] Bx in last 5 years No 09/13/2020 1:46 PM INSPECTOR PROCESS [facility] ENTRAL LABORATORY Menstrual Status Regular Periods 09/13/2020 1:46 PM INSPECTOR PROCESS [facility] ENTRAL LABORATORY [place] Bx Done Today No 09/13/2020 1:46 PM INSPECTOR PROCESS [facility] ENTRAL LABORATORY Additional Information None given 09/13/2020 1:46 PM INSPECTOR PROCESS [facility] ENTRAL LABORATORY Comment: Cytology is screened at [facility] [employer] [facility], Central Laboratory - [address], [place] [address] and [facility] Laboratory - [address], [place] [address] and [facility] Laboratory - [address] [place] [address] Interpreted at [facility] Central Laboratory - [address], [place] [address] Automated Review Successful 09/13/2020 1:46 PM INSPECTOR PROCESS [facility] ENTRMO LABORATORY Comment:Specimen processed s uccessfully by automated brine mixer operator device, ThinPrep Imaging System, [employer] ANCILLARY TESTING AERIAL ADVERTISER HPV Ordered, Please see separate report 09/13/2020 1:46 PM INSPECTOR PROCESS [facility] Note The pap test is a screening technique, not a diagnostic procedure. It is used primarily to screen for squamous cancers and precursor lesions. Published studies have shown that it is subject to both false negative and false positive results. The pap test should not be used as the sole means to diagnose or exclude pre-malignant and malignant lesions. 09/13/2020 1:46 PM INSPECTOR PROCESS [facility] Other (Cervical) Non-Blood / Unknown 09/05/2020 3:00 PM INSPECTOR PROCESS 09/05/2020 3:58 PM INSPECTOR PROCESS us Shante Polanco MD PATHOLOGY/CYTOLOGY Final Result [facility] [address] [place] [address], * ANTI HIV 1/2 (02/12/2012 10:55 AM CDT) ANTI HIV 1/2 Non-reacti ve [facility] Blood specimen (specimen) BLOOD SPECIMEN / Unknown 02/12/2012 10:55 AM CDT 02/12/2012 10:42 AM CDT us Deonna Le NP SEND OUTS F inal Result [facility] LABORATORY INTERNAL ZIP [address] [place] [address] * ANTI HCV (05/06/2008 4:10 PM CDT) ANTI HCV Non-reacti ve [facility] Blood specimen (specimen) BLOOD SPECIMEN / Unknown 05/06/2008 4:10 PM CDT 05/06/2008 4:04 PM CDT us Bess LAWRENCE SEND OUTS Final Resu lt [facility] INTERNAL ZIP [address] [place] [id number] from Last 3 Months or Most Recently Relevant to Health Maintenance Insurance [facility] Care Teams Hand Silvering Supervisor Relationship Specialty Start Date End Date Shante Polanco MD [address] [place] [address] PCP - General Family Practice 03/21/12
--- NOTE | 2025-04-01 22:06 | CRLHL7_ITS ---
For Patients: As a result of the Century Cures Act, medical imaging exams and procedure reports are released immediately into your electronic medical record. You may view this report before your referring provider. If you have questions, please contact your health care provider. Indication: Shortness of breath. Technique: Chest two views. Comparison: None. Findings/Impression: The heart is not abnormally enlarged. Mediastinal contours are grossly within normal limits. No definite confluent airspace opacity. No pleural effusion or pneumothorax. No acute osseous abnormality. Dictated by Edil Bonilla MD @ 04/01/2025 10:54:18 PM (Electronically Signed)
--- NOTE | 2025-04-01 22:10 | ED.GENADULT ---
HPI - General Adult General Chief complaint: Nausea/Vomiting Stated complaint: nausea Time Seen by Provider: 04/01/25 21:59 Source: patient Mode of arrival: EMS Limitations: no limitations History of Present Illness HPI narrative: 45-year-old female presenting today after an episode of syncope. Patient states that she woke up this morning with a sore throat. During the day her symptoms simply got worse. She felt weak, lightheaded. 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 She believes she slumped off to 1 side. She then woke up and called her sister. In between walking out of a car in calling her sister she states it was about 5 minute time span. When she woke up she was feeling very fatigued and just generally unwell. She complains of body aches. Denies fevers or chills. No nausea or vomiting. No diarrhea today. She denies any urinary symptoms. Denies any sick contacts that she is aware. No new medications. No palpitations. No chest pain. Related Data Home Medications ?Medication ?Instructions ?Recorded ?Confirmed sertraline 100 mg tablet 100 mg PO DAILY 07/28/24 07/28/24 Allergies Allergy/AdvReac Type Severity Reaction Status Date / Time nalbuphine (From Nubain) Allergy Unknown Agitated Verified 07/28/24 03:23 Estrogens AdvReac Unknown Factor V Verified 07/28/24 03:23 Leiden Heterozygote Review of Systems Status of ROS: Reports: 10 or more systems reviewed and unremarkable except as noted in History and below [facility] Medical History Abdominal pain ?R10.9 - Unspecified abdominal pain (ICD-10) IBS (irritable bowel syndrome) ?K58.9 - Irritable bowel syndrome without diarrhea (ICD-10) History of ovarian cyst ?Z87.42 - Personal history of other diseases of the female genital tract (ICD-10) History of recurrent miscarriages ?N96 - Recurrent loss (ICD-10) History of abnormal cervical Pap smear ?Z87.42 - Personal history of other diseases of the female genital tract (ICD-10) Surgical History Abnormal colonoscopy (09/04/21) ?R93.3 - Abnormal findings on diagnostic imaging of other parts of digestive tract (ICD-10) History of D&C (05/27/09) ?Z98.890 - Other specified postprocedural states (ICD-10) History of right breast biopsy (12/18/10) ?Z98.890 - Other specified postprocedural states (ICD-10) S/P thyroid biopsy ?Z98.890 - Other specified postprocedural states (ICD-10) Family History Father Coronary artery disease, Onset Age: 49 High blood pressure Aunt Lupus Paternal Grandmother High cholesterol High blood pressure Breast cancer, Onset Age: 37 Paternal Grandfather High cholesterol Sister Depression Anxiety Breast cancer Social History Smoking Status: Never smoker Do you use any of these nicotine containing products: None Second hand tobacco smoke exposure: No How often do you have a drink containing alcohol: never How often do you have six or more drinks on one occasion: Never AUDIT-C Alcohol total score: 0 Non-prescribed substance use: denies use Exam Narrative: Exam Narrative: Well-nourished well-developed patient in no acute distress. Alert and oriented. Answers questions appropriately. Mood and affect are appropriate. Thoughts are goal oriented and rational. No tangential or magical thinking noted. Patient speaks in full sentences without needing to catch Her breath. she does not appear ill or toxic. HEENT: Normocephalic atraumatic. Pupils are equally round reactive to light. Extraocular muscles are intact. Conjunctivae are moist without any icterus noted. Moist mucous membranes. Posterior pharynx is normal. Neck is soft without any lymphadenopathy or thyromegaly. No masses are appreciated. Cardiovascular: Heart is regular rate and rhythm S1 and S2 are present without any murmurs. Lungs: Clear to auscultation bilaterally no wheezes rhonchi or rales are appreciated. Patient takes deep breaths without any discomfort. Abdomen: Soft and nontender nondistended with normal bowel sounds. No guarding or rebound Tenderness. Extremities: Bilateral lower extremities are without edema. Normal DP and PT pulses. Skin: Well perfused without any obvious rashes. Strength is 5/5 of the upper and lower extremities. Cranial nerves 3-12 are normal. There is no nystagmus either horizontally or vertically. Const: Vital Signs, click to edit/add: Vital Signs - 24 hr 04/01/25 21:40 04/01/25 22:09 04/01/25 22:34 Temperature 97 F L Pulse Rate [Pulse Oximeter] 90 Pulse Rate [orthos tatic lying Right Pulse Oximeter] 83 Pulse Rate [orthos tatic sitting Righ t Pulse Oximeter] 85 Pulse Rate [orthos tatic standing Rig ht Pulse Oximeter] 86 Respiratory Rate 16 Blood Pressure [Ri ght Upper Arm] 141/67 H Blood Pressure [or thostatic lying Le ft Arm] 122/75 Blood Pressure [or thostatic sitting Left Arm] 128/89 Blood Pressure [or thostatic standing Left Arm] 137/99 H Pulse Oximetry 99 95 Oxygen Delivery Me thod Room Air 04/01/25 23:51 Temperature Pulse Rate [Pulse Oximeter] 80 Pulse Rate [orthos tatic lying Right Pulse Oximeter] Pulse Rate [orthos tatic sitting Righ t Pulse Oximeter] Pulse Rate [orthos tatic standing Rig ht Pulse Oximeter] Respiratory Rate 16 Blood Pressure [Ri ght Upper Arm] 117/76 Blood Pressure [or thostatic lying Le ft Arm] Blood Pressure [or thostatic sitting Left Arm] Blood Pressure [or thostatic standing Left Arm] Pulse Oximetry 96 Oxygen Delivery Me thod Room Air Course Course ED Course: Differential diagnoses includes but is not limited to dehydration, viral infection, cardiac arrhythmia. Patient was placed on the strategic analyst, no obvious arrhythmias identified during her time here. No evidence of orthostatic hypotension. EKG, read by me, shows normal sinus rhythm with a normal QRS, QTC and HI interval. Pulse 86. CBC is unremarkable. Normal lactate. Normal troponin. Normal CRP. Normal chemistries. Normal LFTs. Negative mono. Negative strep. Triple swab is negative. UA is unremarkable. Chest x-ray, read by me, does not show any acute pathology. Vital Signs Vital signs: Initial Vital Signs Temperature 97 F L 04/01/25 21:40 Temperature Source Temporal Artery Scan 04/01/25 21:40 Pulse Rate 90 04/01/25 21:40 Respiratory Rate 16 04/01/25 21:40 Blood Pressure 141/67 H 04/01/25 21:40 Blood Pressure Mean 91 04/01/25 21:40 Blood Pressure Position Semi-Fowlers 04/01/25 21:40 Pulse Oximetry 99 04/01/25 21:40 Oxygen Delivery Method Room Air 04/01/25 21:40 Vital Signs Temperature 97 F L 04/01/25 21:40 Pulse Rate 90 04/01/25 21:40 Respiratory Rate 16 04/01/25 21:40 Blood Pressure 141/67 H 04/01/25 21:40 Pulse Oximetry 99 04/01/25 21:40 Oxygen Delivery Method Room Air 04/01/25 21:40 Temperature 97 F L 04/01/25 21:40 Pulse Rate 80 04/01/25 23:51 Respiratory Rate 16 04/01/25 23:51 Blood Pressure 117/76 04/01/25 23:51 Pulse Oximetry 96 04/01/25 23:51 Oxygen Delivery Method Room Air 04/01/25 23:51 Medical Decision Making MDM Narrative Medical decision making narrative: 45-year-old female feeling unwell, question episode of syncope. Etiology unclear. We discussed viral infections, dehydration. We discussed monitoring symptoms over the next couple days and return to the ER if they are worsening. I do want her to follow up with primary care provider this coming week. Lab Data Lab results reviewed: Yes I reviewed the patient's lab results Labs: Lab Results 04/01/25 04/01/25 04/01/25 Range/Units 10:10 22:07 22:20 WBC 9.47 (4.50-11.00) K/uL RBC 3.83 L (4.00-5.20) m/uL Hgb 12.0 (12.0-16.0) gm/dL Hct 36.3 (33.0-51.0) % MCV 95 (80-100) fL MCH 31 (26-34) pg MCHC 33 (32-36) gm/dL RDW Coeff of Tyson 12.5 (11.5-15.5) % Plt Count 270 (140-440) K/uL Neut % (Auto) 68.6 (42.0-72.0) % Lymph % (Auto) 21.8 (20-44) % [place] % (Auto) 7.1 (0.0-11.0) % Eos % (Auto) 2.1 (0.0-7.0) % Baso % (Auto) 0.3 (0.0-3.0) % Neut # (Auto) 6.50 (1.7-7.0) K/uL Lymph # (Auto) 2.06 (0.90-2.90) K/uL Het[place]er # (Auto) 0.70 (0.00-0.90) K/UL Eos # (Auto) 0.20 (0.00-0.50) K/uL Baso # (Auto) 0.03 (0.00-0.30) K/uL Abs Immat Gran (auto) 0.01 (0.00-0.30) K/uL Imm/Tot Granulo (auto) 0.1 % Sodium 141 (135-149) mmol/L Potassium 4.0 (3.6-5.1) mmol/L Chloride 108 (96-114) mmol/L Carbon Dioxide 27 (20-32) mmol/L Anion Gap 6 L (7-15) mEq/L BUN 8 (5-24) mg/dL Creatinine 0.8 (0.5-1.5) mg/dL Estimated Creat Clear 91.47 Estimated GFR 94 ml/min Glucose 91 (60-115) mg/dL Lactate 0.9 (0.5-1.9) mmol/L Calcium 8.9 (8.4-10.6) mg/dL Magnesium 1.8 (1.5-2.6) mg/dL Total Bilirubin 0.2 (0.1-1.5) mg/dL Direct Bilirubin 0.2 (0.0-0.5) mg/dL AST 23 (12-35) U/L ALT 13 (4-35) U/L Alkaline Phosphatase 62 (40-150) U/L Troponin I < 0.01 (0.01-0.04) ng/mL C-Reactive Protein < 0.5 L (0.5-1.0) mg/dL Total Protein 6.4 (6.0-8.3) g/dL Albumin 3.8 (3.3-5.0) g/dL Lipase 142 (23-300) U/L TSH 1.710 (0.270-4.20) uIU/mL Urine Color Yellow (Yellow) Urine Appearance Clear (Clear) Urine pH 7.0 (5.0-8.5) Ur Specific [place] 1.010 (1.000-1.030) Urine Protein Negative (Negative) Urine Glucose (UA) Negative (Negative) Urine Ketones Negative (Negative) Urine Blood Negative (Negative) Urine Nitrite Negative (Negative) Urine Bilirubin Negative (Negative) Urine Urobilinogen 0.2 (0.2-1.0) Ur Leukocyte Esterase Negative (Negative) Urine RBC 0-2 (0-2) Urine WBC 0-2 (0-5) Ur Squamous Epith Cells Few (None-Few) Amorphous Sediment Few A (None) Urine Bacteria Few A (None) Urine HCG, Qual Negative (Negative) SARS-CoV-2 (PCR) Negative SARS-CoV-2 (Negative) Monoscreen Negative (Negative) Influenza Type A (PCR) Negative PCR FLU A (Negative) Influenza Type B (PCR) Negative PCR FLU B (Negative) RSV (PCR) Negative PCR RSV (Negative) Group A Strep DNA NOT DETECTED (Not Detectd) POC Troponin I (0.01-0.04) ng/ml 04/01/25 Range/Units 22:37 WBC (4.50-11.00) K/uL RBC (4.00-5.20) m/uL Hgb (12.0-16.0) gm/dL Hct (33.0-51.0) % MCV (80-100) fL MCH (26-34) pg MCHC (32-36) gm/dL RDW Coeff of Tyson (11.5-15.5) % Plt Count (140-440) K/uL Neut % (Auto) (42.0-72.0) % Lymph % (Auto) (20-44) % Hettinger % (Auto) (0.0-11.0) % Eos % (Auto) (0.0-7.0) % Baso % (Auto) (0.0-3.0) % Neut # (Auto) (1.7-7.0) K/uL Lymph # (Auto) (0.90-2.90) K/uL Hettinger # (Auto) (0.00-0.90) K/UL Eos # (Auto) (0.00-0.50) K/uL Baso # (Auto) (0.00-0.30) K/uL Abs Immat Gran (auto) (0.00-0.30) K/uL Imm/Tot Granulo (auto) % Sodium (135-149) mmol/L Potassium (3.6-5.1) mmol/L Chloride (96-114) mmol/L Carbon Dioxide (20-32) mmol/L Anion Gap (7-15) mEq/L BUN (5-24) mg/dL Creatinine (0.5-1.5) mg/dL Estimated Creat Clear Estimated GFR ml/min Glucose (60-115) mg/dL Lactate (0.5-1.9) mmol/L Calcium (8.4-10.6) mg/dL Magnesium (1.5-2.6) mg/dL Total Bilirubin (0.1-1.5) mg/dL Direct Bilirubin (0.0-0.5) mg/dL AST (12-35) U/L ALT (4-35) U/L Alkaline Phosphatase (40-150) U/L Troponin I (0.01-0.04) ng/mL C-Reactive Protein (0.5-1.0) mg/dL Total Protein (6.0-8.3) g/dL Albumin (3.3-5.0) g/dL Lipase (23-300) U/L TSH (0.270-4.20) uIU/mL Urine Color (Yellow) Urine Appearance (Clear) Urine pH (5.0-8.5) Ur Specific [place] (1.000-1.030) Urine Protein (Negative) Urine Glucose (UA) (Negative) Urine Ketones (Negative) Urine Blood (Negative) Urine Nitrite (Negative) Urine Bilirubin (Negative) Urine Urobilinogen (0.2-1.0) Ur Leukocyte Esterase (Negative) Urine RBC (0-2) Urine WBC (0-5) Ur Squamous Epith Cells (None-Few) Amorphous Sediment (None) Urine Bacteria (None) Urine HCG, Qual (Negative) SARS-CoV-2 (PCR) (Negative) Monoscreen (Negative) Influenza Type A (PCR) (Negative) Influenza Type B (PCR) (Negative) RSV (PCR) (Negative) Group A Strep DNA (Not Detectd) POC Troponin I 0.01 (0.01-0.04) ng/ml Imaging Data Chest x-ray: Attestation: I have reviewed the pertinent imaging results. Radiologist's impression: Technique: Chest two views. Comparison: None. Findings/Impression: The heart is not abnormally enlarged. Mediastinal contours are grossly within normal limits. No definite confluent airspace opacity. No pleural effusion or pneumothorax. No acute osseous abnormality. ECG Data Attestation: I personally reviewed and interpreted this ECG as follows: Discharge Plan Discharge Clinical Impression: Fatigue, Syncope Patient Disposition: Home, Self-Care Condition: Stable Additional Instructions: Your workup today did not reveal any obvious reason for your symptoms today. I do think that you should follow-up with your primary care provider this coming week for a recheck. If your symptoms get worse over the next couple of days coming she return to the emergency department. Make sure to rest and stay well hydrated over the weekend. Prescriptions: No Action sertraline 100 mg tablet 100 mg PO DAILY Follow Up/Referrals: Sunny Graves MD [Primary Care Provider, Internal Medicine] Stand Alone Forms: Luminate Info Instructions
[2025-04-01 22:18] LABS: Appearance Urine Clear (Clear)
[2025-04-01 22:19] LABS: Ur HCG Qualitative* Negative (Negative)
[2025-04-01 22:31] LABS: Lactate* 0.9 mmol/L (0.5-1.9)
[2025-04-01 22:32] LABS: Hematocrit* 36.3 % (33.0-51.0); Hemoglobin* 12.0 gm/dL (12.0-16.0); Immature Granulocytes Abs Auto 0.01 K/uL (0.00-0.30); Immature Granulocytes Pct Auto 0.1 %; Lymphocytes Absolute Auto 2.06 K/uL (0.90-2.90); Mean Corpuscular HGB Conc 33 gm/dL (32-36); Mean Corpuscular Hemoglobin 31 pg (26-34); Mean Corpuscular Volume 95 fL (80-100); RDW Coefficient of Variation % 12.5 % (11.5-15.5); Red Blood Count* 3.83 m/uL (4.00-5.20); White Blood Count* 9.47 K/uL (4.50-11.00)
[2025-04-01 22:38] LABS: Troponin, Point-of-Care* 0.01 ng/ml (0.01-0.04)
[2025-04-01 22:39] LABS: Slide Review Reflex No
[2025-04-01 22:51] LABS: Albumin* 3.8 g/dL (3.3-5.0); Chloride* 108 mmol/L (96-114); Potassium* 4.0 mmol/L (3.6-5.1); Sodium* 141 mmol/L (135-149)
[2025-04-01 22:54] LABS: Alanine Aminotransferase* 13 U/L (4-35); Alkaline Phosphatase* 62 U/L (40-150); Anion Gap 6 mEq/L (7-15); Aspartate Amino Transferase* 23 U/L (12-35); Bilirubin Direct* 0.2 mg/dL (0.0-0.5); Bilirubin Total* 0.2 mg/dL (0.1-1.5); Calcium* 8.9 mg/dL (8.4-10.6); Carbon Dioxide* 27 mmol/L (20-32); Glucose* 91 mg/dL (60-115); Total Protein* 6.4 g/dL (6.0-8.3)
[2025-04-01 22:57] LABS: Mono Screen* Negative (Negative)
[2025-04-01 23:02] LABS: Strep A DNA Probe* NOT DETECTED (Not Detectd)
[2025-04-01 23:04] LABS: Blood Urea Nitrogen* 8 mg/dL (5-24); Creatinine* 0.8 mg/dL (0.5-1.5); Est. Creatinine Clearance* 91.47; Estimated Glomerular Filt Rate 94 ml/min
[2025-04-01 23:15] LABS: PCR FLU A Negative PCR FLU A (Negative); PCR FLU B Negative PCR FLU B (Negative); PCR RSV Negative PCR RSV (Negative); SARS PCR* Negative SARS-CoV-2 (Negative)
[2025-04-02] VITALS: PULSE 76; RESP 15; O2SAT 97
== END 2025-04-02 00:21 | disposition home or self-care (01) ==
PROVIDERS: Emergency Provider Family Medicine; PCP Internal Medicine
DX: R53.83 Other fatigue (principal); R55 Syncope and collapse
CPT/HCPCS: 36415; 71046; 80048; 80076; 81001; 81025; 83605; 83690; 83735; 84443; 84484; 85025; 86140; 86308; 87086; 87631; 87651; 93005; 94761; 99284; 99285